=== PATIENT | female | born 1980 | race Asian ===

== ENCOUNTER 2020-08-08 06:19 | Emergency (ER) | payer BC ==
[~2020-08-08] VITALS: Ht 162.6 cm; Wt 56.7 kg
[2020-08-08] MEDS ORDERED: Bamlanivimab 700 MG in NS 110 ML IVPB SCH (07:30)
[2020-08-08] MEDS ORDERED: Albuterol ud Inhalation HHN ONE (07:30)
[2020-08-08] MEDS ORDERED: guaiFENesin /DM 10ml syrup ORAL PRN (07:30)
[2020-08-08] MEDS ORDERED: Bamlanivimab Fact Sheet MISC ONE (07:30)
--- NOTE | 2020-08-08 07:32 | Emergency Room Report ---
History of Present Illness General Chief Complaint: Flu Like Symptoms Source: Patient Present Illness HPI Patient presents for monoclonal antibody infusion. She tested positive for Covid last . The last 3 days she has had increased cough. She has risk factors of asthma. She is felt fever during the first 3 days but now is no longer had fever. She denies any chest pain at this time. She has generalized muscle aches. She was prescribed cough syrup and let took her last dose last night. She does have an albuterol inhaler but has not been using it recently. She believes she was exposed to Covid as she and her went to [place] last week. No sore throat, palpitations, nausea, vomiting, diarrhea, dysuria, abdominal pain, rashes, depression, anxiety, visual changes, dizziness, headache. Patient has irregular menses but her last menstruation was last week. She does not believe she is . 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 Now: No Reviewed Nursing Documentation: PMH: Agreed; PSxH: Agreed Nursing Documentation-PMH Past Medical History: No History, Except For Hx Asthma: Yes Hx COPD: Yes Review of Systems All Other Systems: negative except mentioned in HPI Physical Exam Vital Signs Date Time Temp Pulse Resp B/P (MAP) Pulse Ox O2 Delivery O2 Flow Rate FiO2 08/08/20 07:21 98.4 76 20 110/70 (83) 96 Room Air Sp02 EP Interpretation: reviewed, normal General Appearance: well appearing, no apparent distress, GCS 15, non-toxic Head: normocephalic Eyes: bilateral eye normal inspection, bilateral eye PERRL ENT: moist mucus membranes Respiratory: no respiratory distress, wheezing, expiration, other - coughing Cardiovascular #1: regular rate, rhythm Cardiovascular #2: 2+ radial (L) Gastrointestinal: normal inspection Musculoskeletal: gait/station normal Neurologic: alert, grossly normal Psychiatric: mood/affect normal Skin: normal color, no rash, warm/dry Medical Decision Making Diagnostic Impression: Primary Impression: COVID-19 Additional Impression: Upper respiratory infection Qualified Codes: J06.9 - Acute upper respiratory infection, unspecified ER Course Patient presents for monoclonal antibody infusion. She does have risk factor of asthma. Antibody infusion has been ordered. In addition the patient will receive Robitussin-DM and also an albuterol treatment. Monoclonal antibody infusion tolerated without difficulty. Patient improved after treatment with albuterol and Robitussin-DM. Still has occasional cough but much improved. Discussed treatment plan with patient. Discussed isolation and the need for follow-up with her primary physician. Patient stable for outpatient observation and treatment. Last Vital Signs Date Time Temp Pulse Resp B/P (MAP) Pulse Ox O2 Delivery O2 Flow Rate FiO2 08/08/20 10:22 98.4 71 17 116/64 98 Room Air 08/08/20 07:42 100 Status: improved Disposition: HOME, SELF-CARE Condition: Improved Scripts Guaifenesin/Dextromethorphan (Robitussin Cough-Chest Dm Liq) 237 Ml Liquid 10 ML PO Q6HR, #120 ML Prov: Stephan Domínguez MD 08/08/20 Stephan Domínguez MD Aug 08, 2020 07:32
--- NOTE | 2020-08-08 07:40 | NUR ---
ED Nurse Note: Pt walked into ED for flu like symptoms. Pt has cough, bodyaches, chills. She denies NVD. She is alert and orientedx4, ambulatory. She has been seen by ERMD. Pt is set up in isolation [facility]. IV established for Bam.
[2020-08-08 07:42] VITALS: BP 118/67
[2020-08-08] MEDS ORDERED: [UNRECOGNIZED DRUG - OTHER] (07:46)
[2020-08-08] MEDS ORDERED: ROBITUSSIN COU237 M2 PO (09:53)
[2020-08-08 10:22] VITALS: BP 116/64
--- NOTE | 2020-08-08 10:23 | NUR ---
ER DISCHARGE NOTE: Patient is cleared to be discharged per ERMD, pt is aox4, on room air, with stable vital signs. pt was given dc and prescription instructions, pt was able to verbalize understanding, pt id band and iv site removed without complications. pt is able to ambulate with steady gait. pt took all belongings. Pt provided COVID packet, Bamlavinab packet, instructions on COVID.
== END 2020-08-08 10:23 | disposition home or self-care (01) ==
LOC: EMR 07:45
DX: U07.1 COVID-19 (principal); J06.9 Acute upper respiratory infection, unspecified; J44.9 Chronic obstructive pulmonary disease, unspecified
CPT/HCPCS: 96365; 99284; Q0239